=== PATIENT | male | born 1980 | race American Indian/Alaskan Native ===

== ENCOUNTER 2016-12-05 18:10 | Emergency (ER) | payer SELFPAY ==
[2016-12-05 19:35] VITALS: BP 128/90
[2016-12-05] MEDS ORDERED: FUL-GLO OP ONE ×2 (21:01→21:18)
[2016-12-05] MEDS ORDERED: MOTRIN PO ONE (21:12)
[2016-12-05] MEDS ORDERED: BOOSTRIX IM ONE (21:12)
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
== END 2016-12-05 22:12 | disposition home or self-care (01) ==
LOC: ED 18:10
DX: S05.01XA Injury of conjunctiva and corneal abrasion without foreign body, right eye, initial encounter (principal); T26.01XA Burn of right eyelid and periocular area, initial encounter; Y08.89XA Assault by other specified means, initial encounter; Y93.9 Activity, unspecified; Y92.9 Unspecified place or not applicable; Y99.9 Unspecified external cause status
CPT/HCPCS: 90471; 90715; 99283